=== PATIENT | female | born 1975 | race Caucasian/White ===

== ENCOUNTER → 2023-06-19 13:22 | Outpatient (REF) | payer BC, SELFPAY | LOC: RCS 13:22 | PROVIDERS: ATTENDING PHYSICIAN Family Medicine | DX: R00.2 Palpitations (principal) | CPT/HCPCS: 93225; 93226 ==

== ENCOUNTER → 2023-12-20 17:12 | Outpatient (REF) | payer BC, SELFPAY | LOC: RAD 17:12 | PROVIDERS: ATTENDING PHYSICIAN Obstetrics & Gynecology | DX: D25.9 Leiomyoma of uterus, unspecified (principal) | CPT/HCPCS: 76830; 76856 ==

== ENCOUNTER → 2024-05-05 13:30 | Outpatient (REF) | payer BC, SELFPAY | LOC: WDC 13:30 | PROVIDERS: ATTENDING PHYSICIAN Obstetrics & Gynecology; FAMILY PHYSICIAN Family Medicine | DX: Z12.31 Encounter for screening mammogram for malignant neoplasm of breast (principal) | CPT/HCPCS: 77063; 77067 ==